=== PATIENT | female | born 1945 | race Asian ===

== ENCOUNTER → 2017-01-21 | Outpatient (CLI) | payer MEDICARE, OTHER ==
[2017-01-21 16:27] LABS: APPEARANCE,URINE CLEAR (CLEAR); GLUCOSE, URINE (UA) NEGATIVE (NEGATIVE); KETONES,URINE NEGATIVE (NEGATIVE); LEUKOCYTE ESTERASE ,URINE SMALL (NEGATIVE); OCCULT BLOOD,URINE TRACE (NEGATIVE); PH,URINE 6.5 (5.0-8.0); PROTEIN,URINE NEGATIVE (NEGATIVE)
[2017-01-21 16:30] LABS: ADD UA MICROSCOPIC YES
[2017-01-21 16:44] LABS: SQUAMOUS EPITHELIAL CELL,UR Moderate /LPF (None Seen)
[2017-01-21 16:45] LABS: RBC,URINE 0-2 /HPF (0-2)
== END | disposition home or self-care (01) ==
LOC: LABPV 14:20
PROVIDERS: ATTEND Internal Medicine
DX: M54.9 Dorsalgia, unspecified (principal)
CPT/HCPCS: 87086

== ENCOUNTER → 2017-06-19 | Outpatient (CLI) | payer MEDICARE, OTHER ==
[2017-06-19 17:06] LABS: APPEARANCE,URINE CLEAR (CLEAR); GLUCOSE, URINE (UA) NEGATIVE (NEGATIVE); KETONES,URINE NEGATIVE (NEGATIVE); LEUKOCYTE ESTERASE ,URINE SMALL (NEGATIVE); OCCULT BLOOD,URINE NEGATIVE (NEGATIVE); PROTEIN,URINE NEGATIVE (NEGATIVE)
[2017-06-19 17:07] LABS: ADD UA MICROSCOPIC YES
[2017-06-19 17:07] LABS: HEMOGLOBIN A1C 6.5 % (4.5-6.2)
[2017-06-19 17:09] LABS: ALBUMIN 4.2 g/dL (3.4-5.0); BILIRUBIN,TOTAL 0.3 mg/dL (0.1-1.0); CALCIUM, TOTAL 9.6 mg/dL (8.8-10.5); CREATININE 1.17 mg/dL (0.60-1.30); POTASSIUM 4.1 mmol/L (3.5-5.1); TOTAL PROTEIN, SERUM 8.5 g/dL (6.4-8.2)
[2017-06-19 17:26] LABS: RBC,URINE None Seen /HPF (0-2); SQUAMOUS EPITHELIAL CELL,UR Rare /LPF (None Seen)
== END | disposition home or self-care (01) ==
LOC: LABPV 15:13
PROVIDERS: ATTEND Internal Medicine
DX: Z00.01 Encounter for general adult medical examination with abnormal findings (principal); E78.00 Pure hypercholesterolemia, unspecified; M54.9 Dorsalgia, unspecified; Z79.899 Other long term (current) drug therapy
CPT/HCPCS: 83036

== ENCOUNTER → 2017-08-07 | Outpatient (CLI) | payer MEDICARE, OTHER | END | disposition home or self-care (01) | LOC: RADPV 14:09 | PROVIDERS: ATTEND Internal Medicine | DX: M16.11 Unilateral primary osteoarthritis, right hip (principal); M51.36 Other intervertebral disc degeneration, lumbar region; M47.816 Spondylosis without myelopathy or radiculopathy, lumbar region; M46.06 Spinal enthesopathy, lumbar region; I70.0 Atherosclerosis of aorta | CPT/HCPCS: 72100; 73502 ==

== ENCOUNTER 2017-09-30 10:41 | Emergency (ER) | payer MEDICARE, OTHER ==
[~2017-09-30] VITALS: Ht 152.4 cm; Wt 59.0 kg
[2017-09-30] MEDS ORDERED: MELO-107 PO (10:47)
[2017-09-30] MEDS ORDERED: AMLO-511 PO (10:47)
[2017-09-30] MEDS ORDERED: GABA-531 PO (10:47)
[2017-09-30] MEDS ORDERED: ATOR20TA86 PO (10:47)
[2017-09-30] MEDS ORDERED: THYROXINE (10:47)
[2017-09-30] MEDS ORDERED: SODIUM CHLORIDE 0.9% 1,000 ML IV ONE (14:00)
[2017-09-30] MEDS ORDERED: OxyCODONE HCL/ACETAMINOPHEN 5-325 MG TABLET PO ONE (14:00)
[2017-09-30 15:34] LABS: ADD UA MICROSCOPIC YES; APPEARANCE,URINE CLEAR (CLEAR); GLUCOSE, URINE (UA) NEGATIVE (NEGATIVE); KETONES,URINE NEGATIVE (NEGATIVE); LEUKOCYTE ESTERASE ,URINE TRACE (NEGATIVE); OCCULT BLOOD,URINE TRACE (NEGATIVE); PH,URINE 6.5 (5.0-8.0); PROTEIN,URINE NEGATIVE (NEGATIVE)
[2017-09-30 15:39] LABS: BASOPHILS # (AUTO) 0.14 K/uL (0.00-0.20); BASOPHILS % (AUTO) 1.5 % (0.0-2.0); EOSINOPHILS # (AUTO) 0.13 K/uL (0.00-0.70); EOSINOPHILS % (AUTO) 1.32 % (1.0-6.0); HEMOGLOBIN 11.3 g/dL (12.0-16.0); LYMPHOCYTES % (AUTO) 21.3 % (22.0-44.0); MEAN CORPUSCULAR HEMOGLOBIN 30.5 pg (26.0-34.0); MEAN CORPUSCULAR HGB CONC 33.3 G/dL (31.0-37.0); MEAN CORPUSCULAR VOLUME 92 fL (80-100); MONOCYTES # (AUTO) 0.7 K/uL (0.1-1.0); MONOCYTES % (AUTO) 6.8 % (2.0-9.0); NEUTROPHILS # (AUTO) 6.5 K/uL (1.8-7.7); PLATELET COUNT (AUTO) 299 K/uL (150-450); RED BLOOD CELL COUNT(AUTO) 3.71 MIL/uL (4.00-5.20); RED CELL DISTRIBUTION WIDTH 13.3 % (11.5-14.5); WHITE BLOOD COUNT (AUTO) 9.5 K/uL (4.5-11.0)
[2017-09-30 15:44] LABS: SQUAMOUS EPITHELIAL CELL,UR Few /LPF (None Seen)
[2017-09-30 15:45] LABS: RBC,URINE 0-2 /HPF (0-2)
[2017-09-30 15:47] LABS: ANION GAP 10 mmol/L (8-16); CALCIUM, TOTAL 8.6 mg/dL (8.8-10.5); CARBON DIOXIDE 27 mmol/L (22-29); CHLORIDE 104 mmol/L (98-107); CREATININE 0.74 mg/dL (0.60-1.30); GLOMERULAR FILTR. RATE CALC > 60 mL/min (>60); SODIUM SERUM 141 mmol/L (136-145); UREA NITROGEN, BLOOD 18 mg/dL (7-18)
[2017-09-30 15:52] LABS: ALANINE AMINOTRANSFERASE 90 U/L (12-78); ALBUMIN 2.7 g/dL (3.4-5.0); ASPARTATE AMINOTRANSFERASE 47 U/L (15-37); BILIRUBIN,TOTAL 0.3 mg/dL (0.1-1.0); TOTAL PROTEIN, SERUM 7.8 g/dL (6.4-8.2); URIC ACID 3.8 mg/dL (2.6-7.2)
[2017-09-30 16:52] VITALS: BP 110/60
[2017-09-30] MEDS ORDERED: ONDANSETRON HCL 4 MG/2 ML VIAL IVP ONE (17:15)
== END 2017-09-30 18:21 | disposition home or self-care (01) ==
LOC: EMS 10:41
DX: M51.36 Other intervertebral disc degeneration, lumbar region (principal); M17.0 Bilateral primary osteoarthritis of knee; I10 Essential (primary) hypertension; E03.9 Hypothyroidism, unspecified; E78.00 Pure hypercholesterolemia, unspecified
CPT/HCPCS: 36415; 80053; 81001; 84550; 85025; 96361; 96374; 99285; J2405; J7030

== ENCOUNTER → 2017-10-10 | Outpatient (CLI) | payer MEDICARE, OTHER ==
[~2017-10-10] MED LIST: AMLO-511 PO; ATOR20TA86 PO; GABA-531 PO; MELO-107 PO; THYROXINE
[2017-10-10 15:50] LABS: ALANINE AMINOTRANSFERASE 55 U/L (12-78); ALBUMIN 2.8 g/dL (3.4-5.0); ASPARTATE AMINOTRANSFERASE 47 U/L (15-37); BILIRUBIN,TOTAL 0.2 mg/dL (0.1-1.0); TOTAL PROTEIN, SERUM 8.3 g/dL (6.4-8.2)
[2017-10-10 16:03] LABS: BILIRUBIN,DIRECT < 0.05 mg/dL (0.00-0.20)
== END | disposition home or self-care (01) ==
LOC: RADPV 12:02
PROVIDERS: ATTEND Internal Medicine
DX: K82.0 Obstruction of gallbladder (principal)
CPT/HCPCS: 76700

== ENCOUNTER → 2018-12-23 | Outpatient (CLI) | payer MEDICARE, OTHER | END | disposition home or self-care (01) | LOC: RADPV 15:28 | PROVIDERS: ATTEND Internal Medicine Geriatric Medicine | DX: R05 Cough (principal) ==

== ENCOUNTER → 2019-02-12 | Outpatient (CLI) | payer MEDICARE, OTHER ==
[~2019-02-12] MED LIST changes: +REGADENOSON 0.4 MG/5 ML PF SYRINGE IVP ONE; +SESTAMIBI TC99M/UD ISOTOPE 1 EA INJ INJ ONE
[2019-02-12 08:40] VITALS: BP 147/62
[2019-02-12 09:27] VITALS: BP 116/59
== END | disposition home or self-care (01) ==
LOC: CARDMN 08:15
PROVIDERS: ATTEND Internal Medicine Cardiovascular Disease
DX: I25.9 Chronic ischemic heart disease, unspecified (principal)
CPT/HCPCS: 78452; 93017; 93306; A9500; J2785

== ENCOUNTER 2020-09-07 05:19 | Day surgery (SDC) | payer MEDICARE, OTHER ==
[2020-09-06 09:14] LABS: COVID AG,FIA SOURCE NASOPHARYNGEAL
[~2020-09-07] VITALS: Ht 152.4 cm; Wt 60.9 kg
[~2020-09-07 05:19] MED LIST changes: +ADAL40PE5 SQ; +AMLO-257 PO; -AMLO-511 PO; +ASPI-728 PO; +CARB15DR OU; -GABA-531 PO; +KETOROLAC TROMETHAMINE 0.5% 5 ML OPHTHALMIC SOLUTION ONE; +LEVO75 PO; +LOSA25TA21 PO; -MELO-107 PO; +MOXIFLOXACIN HCL 0.5% 3 ML OPHTHALMIC SOLUTION ONE; +OMEP20 PO; +PHENYLEPHRINE HCL 2.5% 2 ML OPHTHALMIC SOLUTION ONE; -REGADENOSON 0.4 MG/5 ML PF SYRINGE IVP ONE; +RINGERS SOLUTION,LACTATED 500 ML IV ONE; -SESTAMIBI TC99M/UD ISOTOPE 1 EA INJ INJ ONE; -THYROXINE; +TROPICAMIDE 1% 2 ML OPHTHALMIC SOLUTION ONE
[2020-09-07] MEDS ORDERED: MIDAZOLAM HCL 2 MG/2 ML VIAL IVP ONE (05:20)
[2020-09-07] MEDS ORDERED: HYALURONATE SODIUM 12 MG/ML 0.8 ML SYRINGE IO ONE (05:20)
[2020-09-07] MEDS ORDERED: FentaNYL CITRATE-PF 100 MCG/2 ML VIAL IVP ONE (05:20)
[2020-09-07] MEDS ORDERED: BALANCED SALT 15 ML OPHTHALMIC IRRIG.SOLN OS ONE (05:20)
[2020-09-07] MEDS ORDERED: POVIDONE-IODINE 10% 15 ML SOLUTION UD TP ONE (05:20)
[2020-09-07] MEDS ORDERED: HYALURONATE SOD/CHONDROITIN SOD 0.5 ML VIAL IO ONE (05:20)
[2020-09-07] MEDS ORDERED: EPINEPHrine 1:1,000 [1 MG/ML] AMP IM ONE (05:20)
[2020-09-07] MEDS: KETOROLAC TROMETHAMINE 0.5% 5 ML OPHTHALMIC SOLUTION OS SCH ×3 (05:43→05:56)
[2020-09-07] MEDS: PHENYLEPHRINE HCL 2.5% 2 ML OPHTHALMIC SOLUTION OS SCH ×3 (05:44→05:57)
[2020-09-07] MEDS: MOXIFLOXACIN HCL 0.5% 3 ML OPHTHALMIC SOLUTION OS SCH ×3 (05:44→05:57)
[2020-09-07] MEDS: TROPICAMIDE 1% 2 ML OPHTHALMIC SOLUTION OS SCH ×3 (05:44→05:57)
[2020-09-07] MEDS ORDERED: RINGERS SOLUTION,LACTATED 500 ML IV ONE (06:00)
== END 2020-09-07 08:20 | disposition home or self-care (01) ==
LOC: SURGERY 05:19
PROVIDERS: ATTEND Ophthalmology
DX: H25.12 Age-related nuclear cataract, left eye (principal); H35.363 Drusen (degenerative) of macula, bilateral; H02.833 Dermatochalasis of right eye, unspecified eyelid; I10 Essential (primary) hypertension; E03.9 Hypothyroidism, unspecified; E78.00 Pure hypercholesterolemia, unspecified; Z20.828 Contact with and (suspected) exposure to other viral communicable diseases; Z79.899 Other long term (current) drug therapy; Z83.3 Family history of diabetes mellitus
CPT/HCPCS: 66984; 87426; C9803; J0171; J2250; J3010; J3490; J7120; V2632

== ENCOUNTER 2020-10-05 06:52 | Day surgery (SDC) | payer MEDICARE, OTHER ==
[2020-10-03 12:52] LABS: COVID AG,FIA SOURCE NASOPHARYNGEAL
[~2020-10-05 06:52] MED LIST changes: -KETOROLAC TROMETHAMINE 0.5% 5 ML OPHTHALMIC SOLUTION ONE; -MOXIFLOXACIN HCL 0.5% 3 ML OPHTHALMIC SOLUTION ONE; -PHENYLEPHRINE HCL 2.5% 2 ML OPHTHALMIC SOLUTION ONE; -RINGERS SOLUTION,LACTATED 500 ML IV ONE; -TROPICAMIDE 1% 2 ML OPHTHALMIC SOLUTION ONE
[2020-10-05] MEDS ORDERED: FentaNYL CITRATE-PF 100 MCG/2 ML VIAL IVP ONE (06:53)
[2020-10-05] MEDS ORDERED: HYALURONATE SODIUM 12 MG/ML 0.8 ML SYRINGE IO ONE (06:53)
[2020-10-05] MEDS ORDERED: LIDOCAINE/PF 1% 2 ML VIAL IM ONE (06:53)
[2020-10-05] MEDS ORDERED: TETRACAINE HCL/PF 0.5% 4 ML OPHTHALMIC SOLUTION OU ONE (06:53)
[2020-10-05] MEDS ORDERED: POVIDONE-IODINE 10% 15 ML SOLUTION UD TP ONE (06:53)
[2020-10-05] MEDS ORDERED: MIDAZOLAM HCL 2 MG/2 ML VIAL IVP ONE (06:53)
[2020-10-05] MEDS ORDERED: EPINEPHrine 1:1,000 [1 MG/ML] AMP IM ONE (06:53)
[2020-10-05] MEDS ORDERED: HYALURONATE SOD/CHONDROITIN SOD 0.5 ML VIAL IO ONE (06:53)
[2020-10-05] MEDS ORDERED: RINGERS SOLUTION,LACTATED 500 ML IV ONE ×2 (07:30→08:14)
[2020-10-05] MEDS ORDERED: MOXIFLOXACIN HCL 0.5% 3 ML OPHTHALMIC SOLUTION ONE (08:15)
[2020-10-05] MEDS ORDERED: TROPICAMIDE 1% 2 ML OPHTHALMIC SOLUTION ONE (08:15)
[2020-10-05] MEDS ORDERED: PHENYLEPHRINE HCL 2.5% 2 ML OPHTHALMIC SOLUTION ONE (08:15)
[2020-10-05] MEDS ORDERED: KETOROLAC TROMETHAMINE 0.5% 5 ML OPHTHALMIC SOLUTION ONE (08:15)
[2020-10-05] MEDS: TROPICAMIDE 1% 2 ML OPHTHALMIC SOLUTION OD SCH ×3 (08:52→09:03)
[2020-10-05] MEDS: KETOROLAC TROMETHAMINE 0.5% 5 ML OPHTHALMIC SOLUTION OD SCH ×3 (08:52→09:04)
[2020-10-05] MEDS: MOXIFLOXACIN HCL 0.5% 3 ML OPHTHALMIC SOLUTION OD SCH ×3 (08:52→09:03)
[2020-10-05] MEDS: PHENYLEPHRINE HCL 2.5% 2 ML OPHTHALMIC SOLUTION OD SCH ×3 (08:57→09:05)
[2020-10-05] MEDS ORDERED: FentaNYL CITRATE-PF 100 MCG/2 ML VIAL IVP PRN (10:00)
[2020-10-05] MEDS ORDERED: HYDROmorphone 2 MG/ML SYRINGE IVP PRN (10:00)
[2020-10-05] MEDS ORDERED: OXYGEN THERAPY IH SCH (10:00)
[2020-10-05] MEDS ORDERED: MEPERIDINE-PF 25 MG/ML VIAL IVP PRN (10:00)
== END 2020-10-05 10:50 | disposition home or self-care (01) ==
LOC: SURGERY 06:52
PROVIDERS: ATTEND Ophthalmology
DX: H25.11 Age-related nuclear cataract, right eye (principal); M19.90 Unspecified osteoarthritis, unspecified site; E78.00 Pure hypercholesterolemia, unspecified; I10 Essential (primary) hypertension; G43.909 Migraine, unspecified, not intractable, without status migrainosus; E03.9 Hypothyroidism, unspecified; K21.9 Gastro-esophageal reflux disease without esophagitis; Z79.899 Other long term (current) drug therapy
CPT/HCPCS: 66984; 87426; 93005; C9803; J0171; J2250; J3010; J3490 ×2; J7120; V2632

== ENCOUNTER → 2020-12-02 | Outpatient (CLI) | payer MEDICARE, OTHER | END | disposition home or self-care (01) | LOC: RADPV 08:19 | PROVIDERS: ATTEND Internal Medicine Geriatric Medicine | DX: I70.0 Atherosclerosis of aorta (principal); R91.8 Other nonspecific abnormal finding of lung field | CPT/HCPCS: 71046; 71046-TC ==

== ENCOUNTER → 2021-09-18 | Outpatient (CLI) | payer MEDICARE, OTHER ==
[~2021-09-18] MED LIST changes: +ASPI-1450 PO; -ASPI-728 PO
== END | disposition home or self-care (01) ==
LOC: LABPV 14:50
PROVIDERS: ATTEND Internal Medicine Geriatric Medicine
DX: R06.02 Shortness of breath (principal); I70.0 Atherosclerosis of aorta
CPT/HCPCS: 71046

== ENCOUNTER → 2022-01-04 | Outpatient (CLI) | payer MEDICARE, OTHER ==
[~2022-01-04] MED LIST changes: +LOSA-381 PO; -LOSA25TA21 PO
[2022-01-04 08:53] LABS: BAND NEUTROPHILS % (MANUAL) 0 % (0-5)
[2022-01-04 08:56] LABS: HEMATOCRIT 39.4 % (36-46); HEMOGLOBIN 13.1 g/dL (12.0-16.0); MEAN CORPUSCULAR HEMOGLOBIN 30.8 pg (26.0-34.0); MEAN CORPUSCULAR HGB CONC 33.4 G/dL (31.0-37.0); MEAN CORPUSCULAR VOLUME 92 fL (80-100); PLATELET COUNT (AUTO) 232 K/uL (150-450); RED BLOOD CELL COUNT(AUTO) 4.26 MIL/uL (4.00-5.20); RED CELL DISTRIBUTION WIDTH 14.4 % (11.5-14.5)
[2022-01-04 09:08] LABS: ALANINE AMINOTRANSFERASE 38 U/L (12-78); ALBUMIN 4.2 g/dL (3.4-5.0); ALKALINE PHOSPHATASE 75 U/L (46-116); ANION GAP 8 mmol/L (8-16); ASPARTATE AMINOTRANSFERASE 27 U/L (15-37); BILIRUBIN,TOTAL 0.4 mg/dL (0.1-1.0); CALCIUM, TOTAL 9.3 mg/dL (8.8-10.5); CARBON DIOXIDE 28 mmol/L (22-29); CHLORIDE 105 mmol/L (98-107); GLUCOSE,RANDOM 120 mg/dL (70-110); POTASSIUM 4.3 mmol/L (3.5-5.1); SODIUM SERUM 141 mmol/L (136-145); TOTAL PROTEIN, SERUM 8.3 g/dL (6.4-8.2); UREA NITROGEN, BLOOD 22 mg/dL (7-18)
[2022-01-04 09:10] LABS: GLOMERULAR FILTR. RATE CALC > 60 mL/min (>60)
[2022-01-04 09:20] LABS: C-REACTIVE PROTEIN QUANT < 0.05 mg/dL (0.00-0.30)
[2022-01-04 09:30] LABS: APPEARANCE,URINE CLEAR (CLEAR); BILIRUBIN,URINE NEGATIVE (NEGATIVE); GLUCOSE, URINE (UA) NEGATIVE (NEGATIVE); KETONES,URINE NEGATIVE (NEGATIVE); LEUKOCYTE ESTERASE ,URINE NEGATIVE (NEGATIVE); NITRATE,URINE NEGATIVE (NEGATIVE); OCCULT BLOOD,URINE NEGATIVE (NEGATIVE); UROBILINOGEN,URINE 0.2 mg/dL (<=1.0)
[2022-01-04 09:41] LABS: EOSINOPHILS % (MANUAL) 2 % (1-6); LYMPHOCYTES % (MANUAL) 38 % (22-44); MONOCYTES % (MANUAL) 8 % (2-9); SEGMENTED NEUTROPHILS % 52 % (40-70)
[2022-01-04 09:42] LABS: PROTEIN,URINE NEGATIVE (NEGATIVE)
[2022-01-04 10:05] LABS: ERYTHROCYTE SEDIMENTATION RATE 14 MM/HR (0-20)
[2022-01-08 04:06] LABS: QUANTIFERON, TB GOLD PLUS Negative (Negative)
[2022-01-09 04:06] LABS: HEPATITIS C AB (EIA) <0.1 s/co ratio (0.0-0.9)
== END | disposition home or self-care (01) ==
LOC: MSR 07:41
PROVIDERS: ATTEND Internal Medicine Rheumatology
DX: Z11.59 Encounter for screening for other viral diseases (principal); Z11.1 Encounter for screening for respiratory tuberculosis; Z51.81 Encounter for therapeutic drug level monitoring; R06.09 Other forms of dyspnea; R07.9 Chest pain, unspecified
CPT/HCPCS: 71046; 80053; 80074; 81003; 85007; 85027; 85651; 86140; 86480; 36415-L1; 36415-TC

== ENCOUNTER 2022-08-11 15:38 | Emergency (ER) | payer MEDICARE, OTHER ==
[~2022-08-11] VITALS: Ht 162.6 cm; Wt 65.9 kg
[2022-08-11] MEDS ORDERED: METO50 PO (15:51)
[2022-08-11] MEDS ORDERED: FAMOTIDINE 10 MG/ML 2 ML VIAL IVP ONE (16:00)
[2022-08-11] MEDS ORDERED: ONDANSETRON HCL 4 MG/2 ML VIAL IVP ONE (16:00)
[2022-08-11] MEDS ORDERED: MAG HYDROX/AL HYDROX/SIMETH 30 ML SUSP UDCUP PO ONE (16:00)
[2022-08-11 16:20] LABS: COVID AG,FIA SOURCE NASOPHARYNGEAL
[2022-08-11] MEDS ORDERED: MECLIZINE HCL 25 MG TABLET PO ONE (16:45)
[2022-08-11 17:03] LABS: BASOPHILS % (AUTO) 0.3 % (0.0-2.0); EOSINOPHILS % (AUTO) 0 % (1.0-6.0); HEMOGLOBIN 13.7 g/dL (12.0-16.0); LYMPHOCYTES # (AUTO) 1.6 K/uL (1.0-4.8); LYMPHOCYTES % (AUTO) 19.3 % (22.0-44.0); MEAN CORPUSCULAR HEMOGLOBIN 31.3 pg (26.0-34.0); MEAN CORPUSCULAR HGB CONC 32.6 G/dL (31.0-37.0); MEAN CORPUSCULAR VOLUME 96 fL (80-100); MONOCYTES # (AUTO) 0.3 K/uL (0.1-1.0); MONOCYTES % (AUTO) 3.1 % (2.0-9.0); NEUTROPHILS # (AUTO) 6.6 K/uL (1.8-7.7); NEUTROPHILS % (AUTO) 77.3 % (40.0-70.0); PLATELET COUNT (AUTO) 230 K/uL (150-450); RED BLOOD CELL COUNT(AUTO) 4.37 MIL/uL (4.00-5.20); RED CELL DISTRIBUTION WIDTH 13.9 % (11.5-14.5)
[2022-08-11 17:07] LABS: ANION GAP 5 mmol/L (8-16); CALCIUM, TOTAL 9.7 mg/dL (8.8-10.5); CARBON DIOXIDE 30 mmol/L (22-29); CHLORIDE 102 mmol/L (98-107); CREATININE 0.82 mg/dL (0.60-1.30); GLUCOSE,RANDOM 160 mg/dL (70-110); POTASSIUM 4.1 mmol/L (3.5-5.1); SODIUM SERUM 137 mmol/L (136-145); UREA NITROGEN, BLOOD 21 mg/dL (7-18)
[2022-08-11 17:08] LABS: GLOMERULAR FILTR. RATE CALC > 60 mL/min (>60)
[2022-08-11 17:28] LABS: B-TYPE NATRIURETIC PEPTIDE 69 pg/mL (0-100)
[2022-08-11 17:31] LABS: ALANINE AMINOTRANSFERASE 35 U/L (12-78); ALBUMIN 4.3 g/dL (3.4-5.0); ALKALINE PHOSPHATASE 74 U/L (46-116); ASPARTATE AMINOTRANSFERASE 26 U/L (15-37); BILIRUBIN,TOTAL 0.5 mg/dL (0.1-1.0); CREATINE KINASE, TOTAL ONLY 157 U/L (26-192); LIPASE 187 U/L (73-393); PHOSPHORUS 3.4 mg/dL (2.5-4.9); TOTAL PROTEIN, SERUM 8.6 g/dL (6.4-8.2)
[2022-08-11] MEDS ORDERED: AZITHROMYCIN 500 MG TABLET PO ONE (17:45)
[2022-08-11] MEDS ORDERED: ACETAMINOPHEN 500 MG TABLET PO ONE (17:45)
[2022-08-11 18:04] LABS: APPEARANCE,URINE CLEAR (CLEAR); BILIRUBIN,URINE NEGATIVE (NEGATIVE); GLUCOSE, URINE (UA) NEGATIVE (NEGATIVE); KETONES,URINE TRACE mg/dL (NEGATIVE); LEUKOCYTE ESTERASE ,URINE LARGE (NEGATIVE); NITRATE,URINE NEGATIVE (NEGATIVE); OCCULT BLOOD,URINE NEGATIVE (NEGATIVE); PH,URINE 6.5 (5.0-8.0); PROTEIN,URINE 100-200,SEE CONFIRM mg/dL (NEGATIVE); SPECIFIC GRAVITIY, URINE 1.024 (1.003-1.030); UROBILINOGEN,URINE <=1.0 mg/dL (<=1.0)
[2022-08-11 18:22] VITALS: BP 146/62
[2022-08-11 18:26] LABS: BACTERIA,URINE Few /HPF (None Seen); RBC,URINE 0-2 /HPF (0-2); SULFOSALICYLIC ACID,URINE Trace (Negative)
[2022-08-11] MEDS ORDERED: CEPH-558 PO (18:44)
[2022-08-11] MEDS ORDERED: AZIT-84 PO (18:44)
[2022-08-11] MEDS ORDERED: ONDA-104 PO (18:44)
[2022-08-11] MEDS ORDERED: CEPHALEXIN MONOHYDRATE 500 MG CAPSULE PO ONE (18:45)
== END 2022-08-11 18:59 | disposition home or self-care (01) ==
LOC: EMS 15:41
DX: N39.0 Urinary tract infection, site not specified (principal); J18.9 Pneumonia, unspecified organism; R11.2 Nausea with vomiting, unspecified; E78.00 Pure hypercholesterolemia, unspecified; I10 Essential (primary) hypertension; E03.9 Hypothyroidism, unspecified; Z86.69 Personal history of other diseases of the nervous system and sense organs; Z98.890 Other specified postprocedural states; Z20.822 Contact with and (suspected) exposure to COVID-19
CPT/HCPCS: 99285; 96374; 71045; 96375; 87426; 80053; 81001; 82550; 83690; 83735; 83880; 84100; 84484; 85025; 36415; 87086; 93005; J3490; J2405; Q9967; 81002

== ENCOUNTER 2023-09-08 09:27 | Emergency (ER) | payer MEDICARE, OTHER ==
[~2023-09-08] VITALS: Ht 157.5 cm; Wt 54.5 kg
[~2023-09-08 09:27] MED LIST changes: -AMLO-257 PO; +ATOR20TA PO; -ATOR20TA86 PO; +AZIT-103 PO; -CARB15DR OU; +CEPH-558 PO; +METO50 PO; -OMEP20 PO; +ONDA-104 PO
[2023-09-08 10:43] LABS: COVID AG,FIA SOURCE NASAL SWAB
[2023-09-08 11:20] LABS: SARS-COV2 (COVID) ANTIGEN,FIA Negative (Negative)
[2023-09-08 11:21] LABS: INFLUENZA TYPE A NEGATIVE FOR TYPE A (NEGATIVE); INFLUENZA TYPE B NEGATIVE FOR TYPE B (NEGATIVE)
[2023-09-08] MEDS ORDERED: ALBUTEROL SULFATE 2.5 MG/0.5 ML NEB SOLUTION NEB ONE (12:00)
[2023-09-08] MEDS ORDERED: IPRATROPIUM BROMIDE 0.5 MG/2.5 ML NEB SOLUTION NEB ONE (12:00)
[2023-09-08 12:12] VITALS: PULSE 68; RESP 16; O2SAT 97
[2023-09-08 12:13] VITALS: PULSE 68; RESP 16; O2SAT 97
[2023-09-08 12:15] VITALS: TEMP 98.5
[2023-09-08] MEDS ORDERED: CARV25 PO (12:38)
[2023-09-08] MEDS ORDERED: AMOX1TAB15 PO (12:51)
[2023-09-08] MEDS ORDERED: ALBUTEROL SULFATE HFA 90 MCG/PUFF 8 GM INHALER IH ONE (13:00)
[2023-09-08 13:36] VITALS: BP 164/66; PULSE 63; RESP 21
[2023-09-09] MEDS ORDERED: AMOX1TAB15 PO (11:10)
== END 2023-09-08 14:04 | disposition home or self-care (01) ==
LOC: EMS 09:35
DX: J18.9 Pneumonia, unspecified organism (principal); J98.01 Acute bronchospasm; E78.00 Pure hypercholesterolemia, unspecified; I10 Essential (primary) hypertension; E03.9 Hypothyroidism, unspecified; Z98.890 Other specified postprocedural states; Z20.822 Contact with and (suspected) exposure to COVID-19
CPT/HCPCS: 99285; 71045; 87426; 87804; 94640; 93005; J3535; J7613

== ENCOUNTER 2025-09-29 10:50 | Inpatient (IN) | payer MEDICARE, OTHER ==
[~2025-09-29] VITALS: Ht 153 cm; Wt 65.8 kg
[~2025-09-29 10:50] MED LIST changes: +AMOX1TAB15 PO; -AZIT-103 PO; +AZIT-164 PO; +CARV25 PO
[2025-09-29 11:26] LABS: GLUCOMETER DEV NAME(LOC) ERT.7; GLUCOSE,POINT OF CARE 135 MG/DL (70-110)
[2025-09-29 11:41] LABS: PLATELET COUNT (AUTO) 207 K/uL (150-450); RED BLOOD CELL COUNT(AUTO) 3.27 MIL/uL (4.00-5.20); RED CELL DISTRIBUTION WIDTH 15.2 % (11.5-14.5); WHITE BLOOD COUNT (AUTO) 4.2 K/uL (4.5-11.0)
[2025-09-29 11:46] LABS: CALCIUM, TOTAL 8.1 mg/dL (8.8-10.5); CREATININE 1.16 mg/dL (0.60-1.30); GLOMERULAR FILTR. RATE CALC 45 mL/min (>60); GLUCOSE,RANDOM 146 mg/dL (70-110); SODIUM SERUM 141 mmol/L (136-145); UREA NITROGEN, BLOOD 26 mg/dL (7-18)
[2025-09-29 11:52] LABS: CREATINE KINASE, TOTAL ONLY 218 U/L (26-192)
[2025-09-29 11:54] LABS: TROPONIN I-HIGH SENSITIVITY 8 ng/L (<51)
[2025-09-29] MEDS ORDERED: HYDROCODONE/ACETAMINOPHEN 5-325 MG TABLET PO PRN (16:30)
[2025-09-29] MEDS ORDERED: MORPHINE SULFATE 4 MG/ML SYRINGE IVP PRN (16:30)
[2025-09-29] MEDS ORDERED: ONDANSETRON HCL 4 MG/2 ML VIAL IVP PRN (16:30)
[2025-09-29] MEDS ORDERED: MAGNESIUM HYDROXIDE SUSPENSION 30 ML UDCUP PO PRN (16:30)
[2025-09-29] MEDS ORDERED: BISACODYL 10 MG RECTAL RECTAL SUPPOSITORY PR PRN (16:30)
[2025-09-29] MEDS ORDERED: ZOLPIDEM TARTRATE 5 MG TABLET PO PRN (16:30)
[2025-09-29] MEDS ORDERED: GLIM2TAB35 PO (20:25)
[2025-09-29] MEDS ORDERED: TOFA5TAB PO (20:25)
[2025-09-29] MEDS ORDERED: OMEP-148 PO (20:25)
[2025-09-29] MEDS ORDERED: TRAZ-252 PO (20:25)
[2025-09-29] MEDS ORDERED: EMPA25TA3 PO (20:25)
[2025-09-29] MEDS ORDERED: FEXO-353 PO (20:25)
[2025-09-29] MEDS ORDERED: CARV12 PO (20:25)
[2025-09-29] MEDS ORDERED: LOSA-382 PO (20:25)
[2025-09-29] MEDS ORDERED: NIFE-141 PO (20:25)
[2025-09-29] MEDS ORDERED: ATOR40TA28 PO (20:25)
[2025-09-29] MEDS ORDERED: FAMO20 PO (20:25)
[2025-09-29 20:33] LABS: APPEARANCE,URINE CLEAR (CLEAR); GLUCOSE, URINE (UA) >=1000 mg/dL (NEGATIVE); LEUKOCYTE ESTERASE ,URINE LARGE (NEGATIVE); NITRATE,URINE NEGATIVE (NEGATIVE); OCCULT BLOOD,URINE SMALL (NEGATIVE); SPECIFIC GRAVITIY, URINE 1.011 (1.003-1.030)
[2025-09-29 20:48] LABS: SQUAMOUS EPITHELIAL CELL,UR Moderate /LPF (None Seen)
[2025-09-29 21:15] VITALS: BP 182/70; PULSE 59; RESP 20; TEMP 97.9; O2SAT 97
[2025-09-29] MEDS: DOCUSATE SODIUM 100 MG CAPSULE PO SCH (21:24)
[2025-09-30] MEDS: ACETAMINOPHEN 325 MG TABLET PO PRN (00:10)
[2025-09-30 00:12] VITALS: BP 168/73; PULSE 62; RESP 18; TEMP 97.9; O2SAT 98
[2025-09-30] MEDS: HEPARIN SODIUM,PORCINE 5,000 UNITS/ML VIAL SQ SCH (00:49)
[2025-09-30 03:56] VITALS: BP 140/69; PULSE 64; RESP 18; TEMP 98.1; O2SAT 96
[2025-09-30 06:29] LABS: PLATELET COUNT (AUTO) 234 K/uL (150-450); RED BLOOD CELL COUNT(AUTO) 3.71 MIL/uL (4.00-5.20); RED CELL DISTRIBUTION WIDTH 14.9 % (11.5-14.5); WHITE BLOOD COUNT (AUTO) 5.7 K/uL (4.5-11.0)
[2025-09-30] MEDS: LEVOTHYROXINE SODIUM 75 MCG TABLET PO SCH (06:29)
[2025-09-30 06:43] LABS: CALCIUM, TOTAL 8.7 mg/dL (8.8-10.5); CREATININE 0.91 mg/dL (0.60-1.30); GLOMERULAR FILTR. RATE CALC 59.0 mL/min (>60); GLUCOSE,RANDOM 120.0 mg/dL (70-110); SODIUM SERUM 141.0 mmol/L (136-145); UREA NITROGEN, BLOOD 18.0 mg/dL (7-18)
[2025-09-30 07:12] VITALS: BP 140/66; PULSE 64; RESP 16; TEMP 98.4; O2SAT 95
[2025-09-30 07:12] LABS: TROPONIN I-HIGH SENSITIVITY 10 ng/L (<51)
[2025-09-30] MEDS: PANTOPRAZOLE SODIUM 40 MG DR TABLET PO SCH (08:30)
[2025-09-30] MEDS: ATORVASTATIN CALCIUM 20 MG TABLET PO SCH (08:31)
[2025-09-30] MEDS: ASPIRIN 81 MG CHEWABLE TABLET PO SCH (08:31)
[2025-09-30] MEDS ORDERED: MAGNESIUM SULFATE 4 GM/WATER 100 ML IV PRN (10:00)
[2025-09-30] MEDS ORDERED: MAGNESIUM OXIDE 400 MG TABLET PO PRN (10:00)
[2025-09-30] MEDS ORDERED: MAGNESIUM SULFATE 2 GM/WATER 50 ML IV PRN (10:00)
[2025-09-30 11:20] VITALS: BP 147/69; PULSE 64; RESP 18; TEMP 98.2; O2SAT 98
[2025-09-30] MEDS ORDERED: SODIUM CHLORIDE 0.9% 250 ML IV ONE (12:03)
[2025-09-30] MEDS: CefTRIAXone SODIUM 2 GM in DEXTROSE 5%-WATER 50 ML IV SCH (12:14)
[2025-09-30] MEDS: POTASSIUM CHLORIDE 20 MEQ ER TABLET PO PRN (12:19)
[2025-09-30 16:05] VITALS: BP 124/58; PULSE 64; RESP 16; TEMP 99; O2SAT 97
[2025-09-30 20:28] VITALS: BP 147/70; PULSE 63; RESP 18; TEMP 98.5; O2SAT 99
[2025-10-01 00:15] VITALS: BP 148/68; PULSE 66; RESP 18; TEMP 98.8; O2SAT 96
[2025-10-01 04:00] VITALS: BP 147/72; PULSE 63; RESP 18; TEMP 98.8; O2SAT 98
[2025-10-01 06:28] LABS: PLATELET COUNT (AUTO) 234 K/uL (150-450); RED BLOOD CELL COUNT(AUTO) 3.75 MIL/uL (4.00-5.20); RED CELL DISTRIBUTION WIDTH 14.8 % (11.5-14.5); WHITE BLOOD COUNT (AUTO) 4.6 K/uL (4.5-11.0)
[2025-10-01 06:43] LABS: CALCIUM, TOTAL 8.4 mg/dL (8.8-10.5); CREATININE 1.02 mg/dL (0.60-1.30); GLOMERULAR FILTR. RATE CALC 52.0 mL/min (>60); GLUCOSE,RANDOM 103.0 mg/dL (70-110); SODIUM SERUM 140.0 mmol/L (136-145); UREA NITROGEN, BLOOD 16.0 mg/dL (7-18)
[2025-10-01 08:18] VITALS: BP 155/68; PULSE 62; RESP 16; TEMP 97.9; O2SAT 97
[2025-10-01 11:56] VITALS: BP 149/64; PULSE 66; RESP 18; TEMP 97.9; O2SAT 95
[2025-10-01] MEDS ORDERED: NIFE-40 PO (14:05)
== END 2025-10-01 15:00 | disposition home or self-care (01) | DRG 74 ==
LOC: EMS 10:55 → EDH 15:40 → 5S 21:03
PROVIDERS: ADMIT Internal Medicine; ATTEND Internal Medicine
DX: G90.89 Other disorders of autonomic nervous system (principal); E03.9 Hypothyroidism, unspecified; E11.9 Type 2 diabetes mellitus without complications; I10 Essential (primary) hypertension; I95.9 Hypotension, unspecified; R00.1 Bradycardia, unspecified; E78.5 Hyperlipidemia, unspecified; M19.90 Unspecified osteoarthritis, unspecified site; E78.00 Pure hypercholesterolemia, unspecified
CPT/HCPCS: 70450; 71045; 80048; 81001; 82040; 82550; 82962; 83735; 83880; 84132; 84443; 84484; 85025; 85610; 85730; 87086; 93005; 93306; 93880; 99285; J0360; J0696; J1644; J7050; J7060; 36415-L1; 36415-TC